=== PATIENT | male | born 1950 | race Two or more races ===

== ENCOUNTER 2019-08-06 10:04 | Inpatient (IN) | payer OTHER ==
[~2019-08-06] VITALS: Ht 162.6 cm; Wt 102.1 kg
[2019-08-10] MEDS ORDERED: LOSARTAN-HCTZ1 EACH PO (12:40)
[2019-08-10] MEDS ORDERED: NEURONTIN600 M1 PO (12:40)
[2019-08-10] MEDS ORDERED: METFORMIN HCL500 M3 PO (12:40)
[2019-08-10] MEDS ORDERED: CLARITIN10 M1 PO (12:41)
[2019-08-10] MEDS ORDERED: ECOTRIN81 MG PO (12:41)
[2019-08-10] MEDS ORDERED: CRESTOR5 MG PO (12:41)
== END 2019-08-26 17:52 | DRG 460 ==
LOC: SURG 08-17 07:00 → O/R 08-17 11:00 → SURG 08-17 11:00 → O/R 08-24 05:33 → SURH 08-24 05:33 → SURG 08-24 11:00 → SURH 08-24 20:08
PROVIDERS: ADMIT Neurological Surgery
PROC: 0QB00ZZ Excision of Lumbar Vertebra, Open Approach (ICD-10-PCS; 2019-08-24)
PROC: 4A19X1Z Monitoring of Respiratory Capacity, External Approach (ICD-10-PCS; 2019-08-24)
PROC: 0SG30A0 Fusion of Lumbosacral Joint with Interbody Fusion Device, Anterior Approach, Anterior Column, Open Approach (ICD-10-PCS; principal; 2019-08-24 13:30)
DX: M48.07 Spinal stenosis, lumbosacral region (principal); E11.9 Type 2 diabetes mellitus without complications; E66.9 Obesity, unspecified; I10 Essential (primary) hypertension; Z95.5 Presence of coronary angioplasty implant and graft